=== PATIENT | female | born 1985 | race Caucasian/White ===

== ENCOUNTER 2024-04-20 21:17 | Emergency (ER) | payer SELFPAY ==
[~2024-04-20] VITALS: Ht 160 cm; Wt 72.6 kg
[2024-04-20 21:19] VITALS: BP 131/96; PULSE 78; RESP 18; TEMP 98.7; O2SAT 99
[2024-04-21 00:28] VITALS: BP 105/68; PULSE 70; RESP 16; TEMP 98.7; O2SAT 99
== END 2024-04-21 00:27 | disposition home or self-care (01) ==
LOC: MED 21:17
DX: R06.02 Shortness of breath (principal)
CPT/HCPCS: 71045; 93005; 99283; Q0092